=== PATIENT | male | born 1985 | race Caucasian/White ===

== ENCOUNTER 2021-05-27 00:44 | Emergency (ER) | payer OTHER ==
[~2021-05-27 00:44] MED LIST: BENTYL 20MG TAB20 MG PO; ZOFRAN ODT 4 MG4 MG SL
[2021-05-27 03:13] LABS: HEMOGLOBIN 16.2 gm/dl (14.0-17.5); RED BLOOD COUNT 5.2 M/UL (4.20-5.50); WHITE BLOOD COUNT 9.6 K/UL (4.5-11.0)
[2021-05-27 03:47] LABS: BUN/CREATININE RATIO 21 (0-10)
== END 2021-05-27 04:11 | disposition home or self-care (01) ==
LOC: ER1 00:44
PROVIDERS: Emergency Medicine
DX: M25.512 Pain in left shoulder (principal); I10 Essential (primary) hypertension; E11.9 Type 2 diabetes mellitus without complications
CPT/HCPCS: 71045; 73030; 80048; 82550; 82553; 83874; 84484; 85025; 93005; 96374; 99284; J1885